=== PATIENT | male | born 1995 | race American Indian/Alaskan Native ===

== ENCOUNTER 2019-02-09 14:54 | Emergency (ER) | payer SELFPAY ==
--- NOTE | 2019-02-09 15:28 | Emergency Department Report ---
Blank Doc - Documentation Documentation: 23-year-old male that presents with URI symptoms. This initial assessment/diagnostic orders/clinical plan/treatment(s) is/are subject to change based on patient's health status, clinical progression and re- assessment by fellow clinical providers in the ED. Further treatment and workup at subsequent clinical providers discretion. Patient/guardians urged not to elope from the ED as their condition may be serious if not clinically assessed and managed. Initial orders include: 1- Patient sent to [facility] for further evaluation and treatment 2- CXR
[2019-02-09 15:31] VITALS: BP 119/60
--- NOTE | 2019-02-09 16:17 | XRay Report ---
CHEST 2 VIEWS INDICATION: cough. COMPARISON: None FINDINGS: Support devices: None. Heart: Within normal limits. Lungs/pleura: No acute air space or interstitial disease. No pneumothorax. Additional findings: None. IMPRESSION: Normal chest films. Signer Name: Phoenix Smith Jr, MD Signed: 02/09/2019 4:13 PM Workstation Name: [id number]
--- NOTE | 2019-02-09 17:32 | Emergency Department Report ---
Chief Complaint: Upper Respiratory Infection Stated Complaint: FLU/ASTHMA Time Seen by Provider: 02/09/19 15:27 - HPI History of Present Illness: 23-year-old -[place] male presents to the emergency room for body aches, cough and nasal congestion 5 days. She denies any fever chills no nausea no vomiting. - Exam Vital Signs: Vital Signs 02/09/19 15:28 Temperature 98 F Pulse Rate 75 Respiratory 18 Rate Blood Pressure 119/60 O2 Sat by Pulse 97 Oximetry Physical Exam: Gen: alert oriented NAD Cardic: regular rate and rhythm no murmurs appreciated Resp: Clear to auscultation bilateral no wheezing no rales or rhonchi. Abdomen: Soft nontender nondistended normal bowel sounds. MSE screening note: Focused history and physical exam performed. Due to findings the following was ordered: 23-year-old -[place] male presents to the emergency room for body aches, cough and nasal congestion 5 days. She denies any fever chills no nausea no vomiting. X-ray negative. Patient to take [id number] supportive medications. Increase his fluid intake advance his diet as tolerated Tylenol or ibuprofen as needed ED Disposition for MSE Clinical Impression: Viral syndrome Disposition: Z-07 MED SCREENING EXAM-LEFT Is pt being admited?: No Does the pt Need Aspirin: No Condition: Stable Instructions: Viral Syndrome (ED)
== END 2019-02-09 18:00 | disposition left against medical advice (07) ==
LOC: ED 14:54
DX: B34.9 Viral infection, unspecified (principal)
CPT/HCPCS: 71046